=== PATIENT | female | born 1970 | race African-American/Black ===

== ENCOUNTER 2018-05-25 13:16 | Outpatient (CLI) | payer OTHER ==
--- NOTE | 2018-05-25 14:02 | MMO ---
BILATERAL SCREENING MAMMOGRAM: Date: 05/25/18 HISTORY: Benign biopsy in the left breast in 2013. 47-year-old female. Routine screening mammography. COMPARISON: 09/13/13, 09/05/13, 03/22/12. TECHNIQUE: CC and MLO views of both breasts are submitted for interpretation. This patient's mammogram was reviewed with the assistance of computer-aided detection. FINDINGS: The breasts are composed of heterogeneously dense fibroglandular tissue, which limits the sensitivity of mammography in the detection of underlying malignancy. In the right breast, there is no suspicious dominant mass, architectural distortion, or suspicious ca lcifications. In the left breast, there are two biopsy clips in the upper outer and mid outer quadrants. IMPRESSION: BIRADS 2: Benign Finding(s) RECOMMENDATION: Annual mammogram. POS: GORDY
== END 2018-05-25 13:17 | disposition home or self-care (01) ==
LOC: SCSMAMMO 13:16
PROVIDERS: ATTEND Family Medicine
DX: Z12.31 Encounter for screening mammogram for malignant neoplasm of breast (principal)
CPT/HCPCS: 77067

== ENCOUNTER 2020-12-03 08:47 | Outpatient (CLI) | payer OTHER ==
[2020-12-03] MEDS ORDERED: Morphine 2 MG/ML VIAL ONE (11:41)
--- NOTE | 2020-12-03 13:30 | NM ---
Exam: Nuclear medicine HIDA scan HISTORY: Epigastric pain. COMPARISON: None TECHNIQUE: Patient was administered 5.03 mCi of technetium 99m mebrofenin intravenously. Initial imag ing was carried out for 60 minutes. Patient was subsequently given morphine and additional imaging was carried out for a total of 90 minutes. FINDINGS: Expected distribution of the radiotracer. There is localization of radiotracer in the intra hepatic biliary system. Passage of radiotracer from the common bile duct into small bowel loops. No evidence of radiotracer localization on the first 60 minute images. Patient was administration was mi nistered morphine. There is no evidence of radiotracer localization on the post morphine images. IMPRESSION: Scintigraphic evidence of cholecystitis given the lack of radiotracer localization in the gallbladder . Findings conveyed to Dr. Harvey 12/03/2020 at 1:29 PM Code CR Transcribed Date/Time: 12/03/2020 1:43 PM
== END 2020-12-03 08:48 | disposition home or self-care (01) ==
LOC: NM 08:47
PROVIDERS: ATTEND Internal Medicine Gastroenterology
DX: R10.13 Epigastric pain (principal); K81.9 Cholecystitis, unspecified
CPT/HCPCS: 78227; A9537; J2270

== ENCOUNTER 2020-12-14 09:52 | Outpatient (CLI) | payer OTHER ==
[2020-12-14] MEDS ORDERED: Iopamidol-370 76% 500 ML 1 ML ONE (10:24)
--- NOTE | 2020-12-14 10:41 | CT ---
CT of theabdomen and pelvis: 12/14/2020 COMPARISON:None available HISTORY:Epigastric pain, right-sided abdominal pain for 5 months Change in stool TECHNIQUE: Serial axial CT imaging at5 mm intervals from thelung bases through the pubic symphysis wi th IV and oral contrast. Coronal and sagittal reformatted imaging obtained. Findings:The imaged lung bases are unremarkable. No free intraperitoneal air or fluid. The gallbladder is contracted and not well evaluated on this study. No focal liver lesion. The spleen , pancreas, adrenal glands, and kidneys demonstrate no acute findings. The uterus appears surgically absent. The rectum is expanded and filled with stool. There is a broad based umbilical hernia containing a lo op of nonobstructed bowel, likely small bowel. Colon is decompressed/collapse and multiple regions, limiting assessment. No evidence for bowel obstr uction, or focal bowel inflammatory change, or appendicitis. The vascular structures appear patent. No abdominal or pelvic lymphadenopathy. No acute osseous abnor mality. IMPRESSION: No acute findings within the abdomen/pelvis.
== END 2020-12-14 09:53 | disposition home or self-care (01) ==
LOC: BICCT 09:52
PROVIDERS: ATTEND Internal Medicine Gastroenterology
DX: R10.13 Epigastric pain (principal); R63.4 Abnormal weight loss; R19.7 Diarrhea, unspecified
CPT/HCPCS: 74177; Q9967

== ENCOUNTER 2021-01-21 09:10 | Outpatient (CLI) | payer OTHER ==
[2021-01-21 12:12] LABS: #Eosinphils 0.1 10x3/uL (0.0-0.5); #Monocytes 0.4 10x3/uL (0.0-1.1); #Neutrophils 2.8 10x3/uL (1.5-8.4); %Basophils 0.6 % (0.0-2.0); %Eosinophils 1.8 % (0.0-6.0); %Lymphocytes 33.3 % (18.0-47.0); %Monocytes 7.4 % (0.0-10.0); %Neutrophils 56.5 % (40.0-75.0); Hemoglobin 12.6 g/dL (12.0-15.5); Mean Corpuscular HGB CONC 31.7 g/dL (32.0-36.0); Mean Corpuscular Hemoglobin 27.8 pg (27.0-33.0); Mean Corpuscular Volume 87.4 fl (81.6-98.3); Mean Platelet Volume 11.3 fl (7.4-10.4); Platelet Count 242 10x3/uL (150-450); RBC Distribution Width 12.2 % (11.5-14.5); Red Blood Cell (RBC) Count 4.54 10x6/uL (3.90-5.03)
[2021-01-21 12:31] LABS: ALT (SGPT) 11 U/L (8-55); AST (SGOT) 14 U/L (5-34); Albumin 4.3 g/dL (3.5-5.0); Alkaline Phosphatase 67 U/L (40-110); Anion Gap 13 mmol/L (10-20); BUN (Urea Nitrogen) 14 mg/dL (7.0-18.7); Bilirubin, Direct 0.2 mg/dL (0.1-0.3); Bilirubin, Total 0.4 mg/dL (0.2-1.2); Calc. Creatinine Clearance 0 mL/min (70-130); Calcium 9.4 mg/dL (7.8-10.44); Carbon Dioxide 29 mmol/L (22-29); Chloride 102 mmol/L (98-107); Glucose 76 mg/dL (70-105); Potassium 4.5 mmol/L (3.5-5.1); Protein, Total 7.6 g/dL (6.0-8.3); Sodium 139 mmol/L (136-145)
[2021-01-21 18:22] LABS: SARS-CoV-2 PCR by NAA Not Detected (NotDetected)
== END 2021-01-21 09:11 | disposition home or self-care (01) ==
LOC: LABBT 09:10
PROVIDERS: ATTEND Surgery
DX: Z01.812 Encounter for preprocedural laboratory examination (principal); K81.9 Cholecystitis, unspecified; Z20.822 Contact with and (suspected) exposure to COVID-19
CPT/HCPCS: 80048; 80076; 85025; 87635; U0003; U0005

== ENCOUNTER 2021-01-26 05:34 | Day surgery (SDC) | payer OTHER ==
[2021-01-25 10:35] VITALS: BMI 34.7
[2021-01-26] MEDS ORDERED: Bupivacaine 0.25% HCL 30 ML VIAL ONE (06:38)
[2021-01-26] MEDS ORDERED: Lidocaine 1% w/Epinephrine 1:100K 20 ML VIAL ONE (06:38)
[2021-01-26] MEDS ORDERED: Midazolam HCl 2 mg/2 ml Vial ONE (07:08)
[2021-01-26] MEDS ORDERED: Fentanyl 100 MCG/2 ML VIAL ONE ×3 (07:08→09:12)
[2021-01-26] MEDS ORDERED: Dexamethasone 20 MG/5 ML VIAL ONE (07:43)
[2021-01-26] MEDS ORDERED: Lidocaine 1% PF 5 ML VIAL ONE (07:43)
[2021-01-26] MEDS ORDERED: Succinylcholine 200 MG/10 ml SYRINGE FS ONE (07:43)
[2021-01-26] MEDS ORDERED: Rocuronium Bromide 10 MG/ML (10ML VIAL) ONE (07:43)
[2021-01-26] MEDS ORDERED: Ondansetron PF 4 MG/2 ML Vial ONE (07:43)
[2021-01-26] MEDS ORDERED: Esmolol 100 MG/10 ML VIAL ONE (07:43)
[2021-01-26] MEDS ORDERED: PROPOFOL 200 MG/20 ML VIAL ONE (07:43)
[2021-01-26] MEDS ORDERED: Glycopyrrolate 0.2 MG/ML 5 ML SYRINGE ONE (07:43)
[2021-01-26] MEDS ORDERED: SUGAMMADEX SODIUM 200 MG/2 ML VIAL ONE (08:25)
== END 2021-01-26 11:30 | disposition home or self-care (01) ==
LOC: SDC 05:34
PROVIDERS: ATTEND Surgery
PROC: 0FT44ZZ Resection of Gallbladder, Percutaneous Endoscopic Approach (ICD-10-PCS; principal; 2021-01-26)
DX: K80.10 Calculus of gallbladder with chronic cholecystitis without obstruction (principal); E66.9 Obesity, unspecified; I10 Essential (primary) hypertension; J30.2 Other seasonal allergic rhinitis; Z68.34 Body mass index [BMI] 34.0-34.9, adult; Z79.899 Other long term (current) drug therapy; Z88.6 Allergy status to analgesic agent
CPT/HCPCS: 88304; J0690; J1100; J2250; J2405; J2704; J3010; S0020

== ENCOUNTER 2022-05-12 14:42 | Outpatient (CLI) | payer OTHER | END 2022-05-12 14:43 | disposition home or self-care (01) | LOC: BICMRI 14:42 | PROVIDERS: ATTEND Orthopaedic Surgery | DX: M67.432 Ganglion, left wrist (principal) ==

== ENCOUNTER 2022-06-10 12:40 | Outpatient (CLI) | payer OTHER ==
[2022-06-10 13:22] LABS: #Eosinphils 0.1 10x3/uL (0.0-0.5); #Monocytes 0.3 10x3/uL (0.0-1.1); #Neutrophils 2.6 10x3/uL (1.5-8.4); %Basophils 0.8 % (0.0-2.0); %Eosinophils 2.5 % (0.0-6.0); %Lymphocytes 35.7 % (18.0-47.0); %Monocytes 6.8 % (0.0-10.0); %Neutrophils 53.8 % (40.0-75.0); Hemoglobin 13.4 g/dL (12.0-15.5); Mean Corpuscular HGB CONC 32.8 g/dL (32.0-36.0); Mean Corpuscular Hemoglobin 28.4 pg (27.0-33.0); Mean Corpuscular Volume 86.4 fl (81.6-98.3); Mean Platelet Volume 10.3 fl (7.4-10.4); Platelet Count 269 10x3/uL (150-450); RBC Distribution Width 12.4 % (11.5-14.5); Red Blood Cell (RBC) Count 4.72 10x6/uL (3.90-5.03); White Blood Cell (WBC) Count 4.8 10x3/uL (3.5-10.5)
[2022-06-10 13:44] LABS: Anion Gap 13 mmol/L (10-20); BUN (Urea Nitrogen) 14 mg/dL (9.8-20.1); Calc. Creatinine Clearance 0 mL/min (70-130); Calcium 9.7 mg/dL (7.8-10.44); Carbon Dioxide 26 mmol/L (22-29); Chloride 104 mmol/L (98-107); Estimated GFR 80; Glucose 98 mg/dL (70-105); Sodium 139 mmol/L (136-145)
== END 2022-06-10 12:41 | disposition home or self-care (01) ==
LOC: LABBT 12:40
PROVIDERS: ATTEND Orthopaedic Surgery
DX: Z01.812 Encounter for preprocedural laboratory examination (principal); M67.432 Ganglion, left wrist; Z20.822 Contact with and (suspected) exposure to COVID-19
CPT/HCPCS: 80048; 85025; 87811

== ENCOUNTER 2022-06-15 07:38 | Day surgery (SDC) | payer OTHER ==
[2022-06-13 13:16] VITALS: BMI 34.9
[2022-06-15] MEDS ORDERED: fentaNYL Citrate/PF 100 MCG/2 ML SYRINGE ONE (09:33)
[2022-06-15] MEDS ORDERED: Midazolam HCl 2 mg/2 ml Vial ONE (09:33)
[2022-06-15] MEDS ORDERED: CEFAZOLIN 2 GM VIAL ONE (09:36)
[2022-06-15] MEDS ORDERED: Sodium Chloride 0.9% 100 ML ONE (09:36)
[2022-06-15] MEDS ORDERED: Xylocaine 1% w/ Epi 1:100K 10 ML VIAL ONE (09:49)
[2022-06-15] MEDS ORDERED: Ondansetron PF 4 MG/2 ML Vial ONE (10:35)
[2022-06-15] MEDS ORDERED: Dexamethasone 20 MG/5 ML VIAL ONE (10:35)
[2022-06-15] MEDS ORDERED: PROPOFOL 200 MG/20 ML VIAL ONE (10:35)
[2022-06-15] MEDS ORDERED: Lidocaine 1% PF 5 ML VIAL ONE (10:35)
[2022-06-15] MEDS ORDERED: HYDROcodone/Acetaminophen 5/325 mg Tablet ONE (12:42)
== END 2022-06-15 13:10 | disposition home or self-care (01) ==
LOC: SDC 07:38
PROVIDERS: ATTEND Orthopaedic Surgery
PROC: 0LB60ZZ Excision of Left Lower Arm and Wrist Tendon, Open Approach (ICD-10-PCS; principal; 2022-06-15)
DX: M67.432 Ganglion, left wrist (principal); I10 Essential (primary) hypertension; E66.9 Obesity, unspecified; Z68.34 Body mass index [BMI] 34.0-34.9, adult; Z79.899 Other long term (current) drug therapy; Z88.8 Allergy status to other drugs, medicaments and biological substances
CPT/HCPCS: J0690; J1100; J2250; J2405; J2704; J3490